=== PATIENT | male | born 1975 | race Caucasian/White ===

== ENCOUNTER 2018-08-27 20:53 | Inpatient (IN) | payer OTHER ==
[~2018-08-27] VITALS: Ht 190.5 cm; Wt 138.3 kg
[2018-08-27] MEDS ORDERED: IV NORMAL SALINE 1,000ML 1,000 ML IV SCH (21:48)
[2018-08-27] MEDS ORDERED: diphenhydrAMINE 50 MG/ML VIAL IV ONE (22:00)
[2018-08-27] MEDS ORDERED: methylPREDNISolone SOD SUCC PF 125 MG/2 ML VIAL. IV ONE (22:15)
[2018-08-27 22:29] LABS: BASO # 0.1 x10^3/uL (0.0-0.2); BASO % 1 % (0-3); EOS # 0.2 x10^3/uL (0.0-0.7); EOS % 2 % (0-3); HEMATOCRIT 39.7 % (39.0-53.0); HEMOGLOBIN 13.4 g/dL (13.0-17.5); LYMPH # 1.6 x10^3/uL (1.0-4.8); LYMPH % 21 % (24-48); MEAN CORPUSCULAR HEMOGLOBIN 32 pg (25-35); MEAN CORPUSCULAR HGB CONC 34 g/dL (31-37); MEAN CORPUSCULAR VOLUME 95 fL (79-100); MONO # 0.8 x10^3/uL (0.0-1.1); MONO % 10 % (0-9); NEUT # 5.2 x10^3uL (1.8-7.7); NEUT % 66 % (31-73); PLATELET COUNT 223 x10^3/uL (140-400); RED BLOOD COUNT 4.19 x10^6/uL (4.30-5.70); RED CELL DISTRIBUTION WIDTH 13.1 % (11.5-14.5); WHITE BLOOD COUNT 7.8 x10^3/uL (4.0-11.0)
[2018-08-27 22:51] LABS: ALBUMIN 3.5 g/dL (3.4-5.0); ALBUMIN/GLOBULIN RATIO 1.1 (1.0-1.7); CALCIUM 8.7 mg/dL (8.5-10.1); CREATININE 1.1 mg/dL (0.7-1.3); GFR 72.4; POTASSIUM 3.7 mmol/L (3.5-5.1); TOTAL BILIRUBIN 0.6 mg/dL (0.2-1.0)
[2018-08-27 22:53] LABS: TOTAL PROTEIN 6.7 g/dL (6.4-8.2)
[2018-08-27] MEDS ORDERED: IV NORMAL SALINE 1,000ML 1,000 ML IV ONE (23:45)
[2018-08-28] MEDS ORDERED: ONDANSETRON PF 4 MG/2 ML VIAL. IV PRN (01:00)
--- NOTE | 2018-08-28 01:02 | PHYS DOC ---
Past History Past Medical History: Asthma, Hypertension Past Surgical History: Other Alcohol Use: None Drug Use: None Adult General Chief Complaint Chief Complaint: SKIN PROBLEM HPI HPI Patient is a 43-year-old male who presents with complaint of sunburn and diffuse rash that he states is painful. Patient states that he has been exposed to a number of different chemicals but is not able to identify them. He states that he has been working outdoors in the heat quite a bit and does admit to sunburn but also complains of muscle aches. He rates the pain as moderate. He does indicate that he has been drinking as much fluid as he could but he admits that he is probably a bit dehydrated. He denies any chest pain or shortness of breath.[] Review of Systems Review of Systems Constitutional: Denies fever or chills [] Respiratory: Denies cough or shortness of breath [] Cardiovascular: No additional information not addressed in HPI [] GI: Denies abdominal pain, nausea, vomiting or diarrhea [] : Denies dysuria or hematuria [] Musculoskeletal: Complains of diffuse muscle aches pain [] Integument: Complains of skin rash and sunburn[] All other systems were reviewed and found to be within normal limits, except as documented in this note. Current Medications Current Medications Current Medications Medications (Trade) Dose Ordered Sig/Demetrice Start Time Stop Time Status Last Admin Dose Admin Diphenhydramine HCl (Benadryl) 50 mg 1X ONCE 08/27/18 22:00 08/27/18 22:03 DC 08/27/18 22:03 50 MG Methylprednisolone Sodium Succinate (SOLU-Medrol 125MG VIAL) 125 mg 1X ONCE 08/27/18 22:15 08/27/18 22:16 DC 08/27/18 22:03 125 MG Sodium Chloride 1,000 ml @ 1,000 mls/hr 1X ONCE 08/27/18 23:45 08/28/18 00:44 DC 08/27/18 23:56 1,000 MLS/HR Allergies Allergies Allergies Coded Allergies Type Severity Reaction Last Updated Verified Penicillins Allergy Unknown 08/27/18 Yes divalproex sodium Allergy Unknown 08/27/18 Yes lithium Allergy Unknown 08/27/18 Yes lurasidone Allergy Unknown 08/27/18 Yes Physical Exam Physical Exam Constitutional: Well developed, well nourished, no acute distress, non-toxic appearance. [] HENT: Normocephalic, atraumatic, bilateral external ears normal, oropharynx moist, no oral exudates, nose normal. [] Eyes: PERRLA, EOMI, conjunctiva normal, no discharge. [] Neck: Normal range of motion, no tenderness, supple, no stridor. [] Cardiovascular:Heart rate regular rhythm, no murmur [] Lungs & Thorax: Bilateral breath sounds clear to auscultation [] Abdomen: Bowel sounds normal, soft, no tenderness. [] Skin: Warm, dry. [] Back: No tenderness, no CVA tenderness. [] Extremities: No tenderness, no cyanosis, no clubbing, ROM intact. [] Neurologic: Alert and oriented X 3, no focal deficits noted. [] Current Patient Data Vital Signs Vital Signs Date Time Temp Pulse Resp B/P (MAP) Pulse Ox O2 Delivery O2 Flow Rate FiO2 08/27/18 21:13 98.1 98 18 98 Room Air Lab Results Laboratory Tests Test 08/27/18 22:10 White Blood Count 7.8 x10^3/uL (4.0-11.0) Red Blood Count 4.19 x10^6/uL (4.30-5.70) L Hemoglobin 13.4 g/dL (13.0-17.5) Hematocrit 39.7 % (39.0-53.0) Mean Corpuscular Volume 95 fL (79-100) Mean Corpuscular Hemoglobin 32 pg (25-35) Mean Corpuscular Hemoglobin Concent 34 g/dL (31-37) Red Cell Distribution Width 13.1 % (11.5-14.5) Platelet Count 223 x10^3/uL (140-400) Neutrophils (%) (Auto) 66 % (31-73) Lymphocytes (%) (Auto) 21 % (24-48) L Monocytes (%) (Auto) 10 % (0-9) H Eosinophils (%) (Auto) 2 % (0-3) Basophils (%) (Auto) 1 % (0-3) Neutrophils # (Auto) 5.2 x10^3uL (1.8-7.7) Lymphocytes # (Auto) 1.6 x10^3/uL (1.0-4.8) Monocytes # (Auto) 0.8 x10^3/uL (0.0-1.1) Eosinophils # (Auto) 0.2 x10^3/uL (0.0-0.7) Basophils # (Auto) 0.1 x10^3/uL (0.0-0.2) Sodium Level 143 mmol/L (136-145) Potassium Level 3.7 mmol/L (3.5-5.1) Chloride Level 107 mmol/L (98-107) Carbon Dioxide Level 27 mmol/L (21-32) Anion Gap 9 (6-14) Blood Urea Nitrogen 19 mg/dL (8-26) Creatinine 1.1 mg/dL (0.7-1.3) Estimated GFR (Cockcroft-Gault) 72.4 BUN/Creatinine Ratio 17 (6-20) Glucose Level 87 mg/dL (70-99) Calcium Level 8.7 mg/dL (8.5-10.1) Total Bilirubin 0.6 mg/dL (0.2-1.0) Aspartate Amino Transferase (AST) 65 U/L (15-37) H Alanine Aminotransferase (ALT) 51 U/L (16-63) Alkaline Phosphatase 68 U/L (46-116) Creatine Kinase 1994 U/L (39-308) H Total Protein 6.7 g/dL (6.4-8.2) Albumin 3.5 g/dL (3.4-5.0) Albumin/Globulin Ratio 1.1 (1.0-1.7) EKG EKG [] Radiology/Procedures Radiology/Procedures [] Course & Med Decision Making Course & Med Decision Making Pertinent Labs and Imaging studies reviewed. (See chart for details) [] Dragon Disclaimer Dragon Disclaimer This electronic medical record was generated, in whole or in part, using a voice recognition dictation system. Departure Departure: Impression: Primary Impression: Rhabdomyolysis Additional Impression: Dehydration Disposition: 09 ADMITTED INPATIENT Admitting Physician: Shashi Hunter Condition: IMPROVED Referrals: PCP,NO (PCP) Problem Qualifiers Primary Impression: Rhabdomyolysis Rhabdomyolysis type: non-traumatic Qualified Codes: M62.82 - Rhabdomyolysis RAFAEL ANN Jr. DO Aug 28, 2018 01:02
[2018-08-28 01:21] LABS: BILIRUBIN,URINE NEG (NEG); CLARITY,URINE CLEAR; COLOR,URINE YELLOW; GLUCOSE,URINE NEG (NEG); NITRITE,URINE NEG (NEG); UROBILINOGEN,URINE 2 mg/dL (0.2 mg/dL)
[2018-08-28 01:22] LABS: BACTERIA,URINE 0 /HPF (0-FEW); RBC,URINE OCC /HPF (0-2); SQUAMOUS EPITHELIAL CELL,UR OCC /LPF; WBC,URINE OCC /HPF (0-4)
[2018-08-28 02:19] VITALS: BP 106/68
[2018-08-28] MEDS: IV NORMAL SALINE 1,000ML 1,000 ML IV SCH ×5 (03:08→17:36)
[2018-08-28] MEDS ORDERED: MONT10TA9 PO (03:24)
[2018-08-28] MEDS ORDERED: FLUT16SP21 NS (03:24)
[2018-08-28] MEDS ORDERED: CETI10TA16 PO (03:24)
[2018-08-28] MEDS ORDERED: ALBU2.5V8 INH (03:24)
[2018-08-28 05:06] VITALS: BP 133/79
[2018-08-28] MEDS ORDERED: ALBUTEROL SULFATE 2.5 MG/3 ML NEBU. INH PRN (07:45)
[2018-08-28] MEDS: MONTELUKAST 10 MG TABLET. PO SCH (09:25)
[2018-08-28] MEDS: FLUTICASONE 50MCG/NASAL SPRAY 16GM BOTTLE. NS SCH (09:25)
[2018-08-28] MEDS: CETIRIZINE HCL 10 MG TABLET PO SCH (09:25)
[2018-08-28] MEDS ORDERED: ACETAMINOPHEN 325 MG TABLET PO PRN (09:30)
[2018-08-28 11:25] VITALS: BP 128/75
--- NOTE | 2018-08-28 14:49 | HP ---
ADMIT DATE: 08/28/2018 HISTORY OF PRESENT ILLNESS: The patient is a 43-year-old male patient who came to the Emergency Room complaining of a sunburn and diffuse rash that he states is painful. The patient states that he has been exposed to a number of different chemicals, but is not able to identify and he states that he has been working outdoors in the heat quite a bit and does admit to sunburn, but also complains of muscle aches. He rates his pain as moderate. He does indicate that he has been drinking as much fluid as he could, but admits that he probably a bit dehydrated. He denied any chest pain or shortness of breath. He apparently has been in [place] for more than 7 years and he has now been in [facility] for almost 2 weeks. He is also complaining of severe pain in his right shoulder. It is constant, burning in nature. He apparently had an x-ray while in [place] that was interpreted as normal. He was investigated in the Emergency Room and has had lab work, which showed that he has mild rhabdomyolysis. His white cell count was normal. His urinalysis was unremarkable. He was admitted for rehydration and pain management. PAST MEDICAL HISTORY: Significant for bronchial asthma and osteoarthritis. PAST SURGICAL HISTORY: Significant for left ankle surgery, left fourth, fifth finger reconstruction surgery. ALLERGIES: He is allergic to PENICILLIN, DIVALPROEX SODIUM, LITHIUM . MEDICATIONS: He is currently on following medications: He is on cetirizine 10 mg once a day, albuterol sulfate 1-2 puffs every 6 hours, Singulair 10 mg once a day, and Flonase 2 sprays to each nostril once a day. FAMILY HISTORY: He does not know his biological father. His mother is still alive at the age of 66 and is known to have diabetes. SOCIAL HISTORY: He is single, has one son. He smokes a pack a day. He does not drink alcohol or use recreational drugs. He is currently in [facility]. He has been in [facility] for more than 7 years and was released only about 2 weeks ago. REVIEW OF SYSTEMS: The patient denied any blurring of vision, cataract, glaucoma, or macular degeneration. Denied any earache, tinnitus, or sensorineural deafness. Denied any nosebleeds, stuffy nose, or postnasal drip. Denied any sore throat, sore tongue, toothache, hoarseness of voice or difficulty swallowing. Denied any nausea, vomiting, diarrhea, or constipation. Denied any hematemesis, melena, or hematochezia. Denied any dysuria, frequency, or hematuria. Denied any chest pain, shortness of breath, orthopnea, paroxysmal nocturnal dyspnea. Denied any cough, phlegm, or hemoptysis. PHYSICAL EXAMINATION: GENERAL: On examining him, he looked well and was clearly in no apparent respiratory distress. No pallor, jaundice, cyanosis, or thyromegaly. No jugular venous distension. No limb edema. VITAL SIGNS: His heart rate was 73, blood pressure 106/68, temperature was 97.7, respiratory rate was 18, and oxygen saturation was 93%. HEAD, EYES, EARS, NOSE, AND THROAT: Showed normocephalic, atraumatic. NECK: Supple. HEART: Showed normal first and second heart sounds with no gallop, rub, or murmur. CHEST: Clear to auscultation. No crepitation or rhonchi. ABDOMEN: Distended, soft, nontender. NEUROLOGIC: He was awake, alert, responding appropriately. All cranial nerves intact. EXTREMITIES: He moves extremities without difficulty. Examination of the skin showed that he has areas of sunburn, both upper and lower extremities clearly involving the exposed part. He has also generalized painful macular rash that is all over his upper and lower extremities and torso. LABORATORY DATA: Showed a white cell count of 7800, hemoglobin 13.4, hematocrit 39, MCV 95, and platelet count of 223,000. His serum sodium was 143, potassium 3.7, chloride 107, his anion gap of 9, BUN 19, creatinine 1.1, estimated GFR was 72 mL per minute. His glucose was 87, calcium was 8.7. Total bilirubin, alkaline phosphatase is normal. AST is slightly elevated. His creatinine kinase was 1994. Total protein was 6.7, albumin was 3.5. His urinalysis showed the urine was yellow, clear with a pH of 6, specific gravity of 1.020. The urine was negative for protein, glucose, trace of ketones, negative for blood, nitrite and leukocyte esterase. There are no rbc's, no wbc's, and no bacteria. IMPRESSION: In summary, this is a 43-year-old male patient who was admitted with mild rhabdomyolysis and dehydration. He has an erythematous painful skin rash, probably because of sun exposure. There is also painful generalized macular rash, the cause of which is not clear to me, most of it is exposed skin. The patient works with [employer] and he is obviously exposed to multiple chemicals. My plan is to continue with IV fluid, continue with pain management. Continue with all his medication. I will arrange for him to have a CT scan of his right shoulder and decide on further management accordingly. PAZ SHAIKH MD DR: EDGAR/amanda JOB#: [id number] / [id number]
[2018-08-28] MEDS ORDERED: HYDROcodone/APAP 5/325MG 1 TAB TABLET PO PRN (15:00)
--- NOTE | 2018-08-28 15:08 | RAD ---
Examination: CT right shoulder without contrast HISTORY: History of right shoulder pain COMPARISON: None available. TECHNIQUE: Axial CT images of the right shoulder performed the contrast. Coronal sagittal reformats are performed Exposure: One or more of the following individualized dose reduction techniques were utilized for this examination: 1. Automated exposure control 2. Adjustment of the mA and/or kV according to patient size 3. Use of iterative reconstruction technique FINDINGS: The right humerus head is within the glenoid. There is no acute fracture or dislocation identified. Mild degenerative changes identified in the right acromioclavicular joint. There is mild subcutaneous stranding identified in the upper back and shoulder region. The visualized right lung grossly appears unremarkable, IMPRESSION: 1. No acute osseous findings. 2. Mild degenerative changes acromioclavicular joint. 3. Mild subcutaneous stranding identified in the right shoulder and right upper back region could be edema or cellulitis. Electronically signed by: Kenn Vaz MD (08/28/2018 3:05 PM) [id number]
[2018-08-28] MEDS: HYDROcodone/APAP 5/325MG 1 TAB TABLET PO PRN ×2 (15:37→17:30)
[2018-08-28 16:00] VITALS: BP 117/68
[2018-08-28] MEDS: NICOTINE 21MG PATCH. TD SCH (18:25)
[2018-08-28 19:29] VITALS: BP 110/70
[2018-08-28 23:13] VITALS: BP 126/79
[2018-08-29 05:36] VITALS: BP 108/69
[2018-08-29] MEDS ORDERED: IV NORMAL SALINE 1,000ML 1,000 ML IV SCH (06:00)
[2018-08-29 06:29] LABS: HEMATOCRIT 36.5 % (39.0-53.0); HEMOGLOBIN 12.2 g/dL (13.0-17.5); RED BLOOD COUNT 3.81 x10^6/uL (4.30-5.70); RED CELL DISTRIBUTION WIDTH 13.1 % (11.5-14.5)
[2018-08-29 06:44] LABS: ALBUMIN 2.8 g/dL (3.4-5.0); ALBUMIN/GLOBULIN RATIO 0.9 (1.0-1.7); C REACTIVE PROTEIN 13.8 mg/L (0-3.3); CALCIUM 7.9 mg/dL (8.5-10.1); CREATININE 0.9 mg/dL (0.7-1.3); GFR 91.3; POTASSIUM 4.2 mmol/L (3.5-5.1); TOTAL BILIRUBIN 0.4 mg/dL (0.2-1.0); TOTAL PROTEIN 5.9 g/dL (6.4-8.2)
[2018-08-29] MEDS: MONTELUKAST 10 MG TABLET. PO SCH (08:44)
[2018-08-29] MEDS: FLUTICASONE 50MCG/NASAL SPRAY 16GM BOTTLE. NS SCH (08:44)
[2018-08-29] MEDS: CETIRIZINE HCL 10 MG TABLET PO SCH (08:44)
[2018-08-29] MEDS: NICOTINE 21MG PATCH. TD SCH (08:47)
[2018-08-29 11:37] VITALS: BP 138/77
--- NOTE | 2018-08-29 14:47 | DS ---
DATE OF DISCHARGE: 08/29/2018 FINAL DISCHARGE DIAGNOSES: 1. Dehydration, rehydrated. 2. Rhabdomyolysis, mild, resolved. 3. Renal failure, ruled out. 4. Generalized macular rash, resolving. 5. History of asthma. 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 Weather has been hot. He was admitted with a diffuse sunburn rash over his torso and legs. He was also weak and tired and he was dehydrated. PHYSICAL EXAMINATION: Please see the dictated note. PERTINENT LABORATORY AND X-RAY STUDIES: On admission, his hemoglobin was 13.4 mg/dL. The electrolytes showed creatinine 1.1 mg/dL, BUN 19. Urine specific gravity is 1.020. His total creatine kinase was 1994. Follow up CK the next day was down to 390. Electrolytes and creatinine were within normal range. COURSE IN THE HOSPITAL: The patient was admitted for IV hydration. He was given symptomatic treatment for his rash, which dissipated and he had no further symptoms. Creatinine was normal. In addition, his CPK resolved and fell to a reasonable level. Clinically, he did well. Blood pressure, vital signs were stable. He was eating well. He wanted to be discharged and go home. I recommended oral Gatorade, which he will follow up. There is no history of recreational drug use. On the next hospital day, the patient was in stable condition. He was discharged home with explicit instructions and followup care. SAVANNAH TURK MD DR: ADELIA/amanda JOB#: [id number] / [id number] PAZ Medeiros MD
== END 2018-08-29 13:00 | disposition home or self-care (01) | DRG 558 ==
LOC: ER 20:53 → 1 SOUTH 08-28 01:02
PROVIDERS: ADMIT Internal Medicine; ATTEND Internal Medicine
DX: M62.82 Rhabdomyolysis (principal); E86.0 Dehydration; F17.210 Nicotine dependence, cigarettes, uncomplicated; I10 Essential (primary) hypertension; J45.909 Unspecified asthma, uncomplicated; Z83.3 Family history of diabetes mellitus; M19.90 Unspecified osteoarthritis, unspecified site; Z88.0 Allergy status to penicillin; Z88.8 Allergy status to other drugs, medicaments and biological substances
CPT/HCPCS: 36415; 73200; 80053; 81001; 82550; 85025; 85027; 85651; 86140; 87641; 96361; 96374; 96375; J1200; J2930; 99285-25; J7030

== ENCOUNTER 2018-10-06 23:55 | Emergency (ER) | payer OTHER ==
[~2018-10-06] VITALS: Ht 190.5 cm; Wt 124.7 kg
[~2018-10-06 23:55] MED LIST: ALBU2.5V8 INH; CETI10TA16 PO; FLUT16SP21 NS; MONT10TA80 PO
--- NOTE | 2018-10-07 00:53 | PHYS DOC ---
Past History Past Medical History: Asthma, Hypertension Past Surgical History: Other Smoking: Cigarettes Additional Smoking Information: One half to one pack per day Alcohol Use: None Drug Use: None Adult General Chief Complaint Chief Complaint: MUSCLE SPASM/CRAMP HPI HPI Patient is a 43-year-old male presents complaining of diffuse muscle spasms. Patient was weed eating outside in the heat today long walk. Drank multiple gallons of water as well as Gatorade. Has only urinated 2 times today. No nausea or vomiting. No syncope. No chest pain. Nothing makes the symptoms better or worse. Symptoms are moderate in intensity.[] Review of Systems Review of Systems Constitutional: Denies fever or chills [] Eyes: Denies change in visual acuity, redness, or eye pain [] HENT: Denies nasal congestion or sore throat [] Respiratory: Denies cough or shortness of breath [] Cardiovascular: No chest pain or palpitations[] GI: Denies abdominal pain, nausea, vomiting, bloody stools or diarrhea [] : Denies dysuria or hematuria [] Musculoskeletal: Denies back pain, see history of present illness[] Integument: Denies rash or skin lesions [] Neurologic: Denies headache, focal weakness or sensory changes [] Endocrine: Denies polyuria or polydipsia [] All other systems were reviewed and found to be within normal limits, except as documented in this note. Current Medications Current Medications Current Medications Medications (Trade) Dose Ordered Sig/Demetrice Start Time Stop Time Status Last Admin Dose Admin Sodium Chloride 1,000 ml @ 1,000 mls/hr 1X ONCE 10/07/18 01:00 10/07/18 01:59 UNV Allergies Allergies Allergies Coded Allergies Type Severity Reaction Last Updated Verified Penicillins Allergy Intermediate 08/28/18 Yes divalproex sodium Allergy Intermediate 08/28/18 Yes lithium Allergy Intermediate 08/28/18 Yes lurasidone Allergy Intermediate 08/28/18 Yes Physical Exam Physical Exam Constitutional: Well developed, well nourished, no acute distress, non-toxic appearance. [] HENT: Normocephalic, atraumatic, bilateral external ears normal, oropharynx moist, no oral exudates, nose normal. [] Eyes: PERRLA, EOMI, conjunctiva normal, no discharge. [] Neck: Normal range of motion, no tenderness, supple, no stridor. [] Cardiovascular:Heart rate regular rhythm, no murmur [] Lungs & Thorax: Bilateral breath sounds clear to auscultation [] Abdomen: Bowel sounds normal, soft, no tenderness, no masses, no pulsatile masses. [] Skin: Warm, dry, no erythema, no rash. [] Back: No tenderness, no CVA tenderness. [] Extremities: No tenderness, no cyanosis, no clubbing, ROM intact, no edema. [] Neurologic: Alert and oriented X 3, normal motor function, normal sensory f unction, no focal deficits noted. [] Psychologic: Affect normal, judgement normal, mood normal. [] EKG EKG [] Radiology/Procedures Radiology/Procedures [] Course & Med Decision Making Course & Med Decision Making Pertinent Labs and Imaging studies reviewed. (See chart for details) ED course: Patient arrived, was placed in bed, and tolerated exam well. IV access was established, he was given IV fluids. His vitals remained stable during his emergency department stay. After the return of laboratory testing, this was discussed with the patient voiced understanding. All questions were answered. He was discharged in improved condition. Medical decision making: This appears to be heat cramps, no evidence of significant electrolyte abnormality. No evidence of renal failure. Patient is oral intake tolerant.[] Dragon Disclaimer Dragon Disclaimer This electronic medical record was generated, in whole or in part, using a voice recognition dictation system. 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 Follow-up with your primary care team within 2 days. Eat your meals. Return to the ER if unable to tolerate liquids, or any other concerns. Problem Qualifiers Primary Impression: Heat cramps Encounter type: initial encounter Qualified Codes: T67.2XXA - Heat cramp, initial encounter KANDIS ESCAMILLA Oct 07, 2018 00:53
[2018-10-07] MEDS ORDERED: IV NORMAL SALINE 1,000ML 1,000 ML IV ONE (01:00)
[2018-10-07 01:09] LABS: BASO # 0.1 x10^3/uL (0.0-0.2); BASO % 1 % (0-3); EOS # 0.1 x10^3/uL (0.0-0.7); EOS % 1 % (0-3); HEMATOCRIT 43.8 % (39.0-53.0); HEMOGLOBIN 14.7 g/dL (13.0-17.5); LYMPH # 1.8 x10^3/uL (1.0-4.8); LYMPH % 17 % (24-48); MEAN CORPUSCULAR HEMOGLOBIN 33 pg (25-35); MEAN CORPUSCULAR HGB CONC 34 g/dL (31-37); MEAN CORPUSCULAR VOLUME 97 fL (79-100); MONO # 0.8 x10^3/uL (0.0-1.1); MONO % 7 % (0-9); NEUT # 7.7 x10^3uL (1.8-7.7); NEUT % 73 % (31-73); PLATELET COUNT 241 x10^3/uL (140-400); RED BLOOD COUNT 4.53 x10^6/uL (4.30-5.70); RED CELL DISTRIBUTION WIDTH 13.5 % (11.5-14.5); WHITE BLOOD COUNT 10.5 x10^3/uL (4.0-11.0)
[2018-10-07 01:24] LABS: ALBUMIN 3.7 g/dL (3.4-5.0); ALBUMIN/GLOBULIN RATIO 1.1 (1.0-1.7); CALCIUM 8.8 mg/dL (8.5-10.1); CREATININE 1.2 mg/dL (0.7-1.3); GFR 65.5; MAGNESIUM 2.4 mg/dL (1.8-2.4); POTASSIUM 4.3 mmol/L (3.5-5.1); TOTAL BILIRUBIN 0.7 mg/dL (0.2-1.0)
[2018-10-07 02:35] VITALS: BP 144/79
== END 2018-10-07 02:45 | disposition home or self-care (01) ==
LOC: ER 23:55
DX: T67.2XXA Heat cramp, initial encounter (principal); J45.909 Unspecified asthma, uncomplicated; I10 Essential (primary) hypertension; F17.210 Nicotine dependence, cigarettes, uncomplicated; Z88.0 Allergy status to penicillin; Z88.8 Allergy status to other drugs, medicaments and biological substances; X58.XXXA Exposure to other specified factors, initial encounter; Y93.01 Activity, walking, marching and hiking; Y92.89 Other specified places as the place of occurrence of the external cause; Y99.8 Other external cause status
CPT/HCPCS: 36415; 80053; 83735; 85025; 99284-25; J7030

== ENCOUNTER 2018-10-14 07:08 | Emergency (ER) | payer OTHER ==
[~2018-10-14] VITALS: Ht 190.5 cm; Wt 72.6 kg
[2018-10-14 07:32] VITALS: BP 158/98
[2018-10-14] MEDS ORDERED: DIPHTH,PERTUSS(ACELL),TET TOX 0.5 ML DISP.SYRIN. VAX IM ONE (07:45)
[2018-10-14] MEDS ORDERED: MELO7.5T29 PO (07:48)
[2018-10-14] MEDS ORDERED: SULF1TAB24 PO (07:48)
--- NOTE | 2018-10-14 07:49 | PHYS DOC ---
Past History Past Medical History: Asthma, Hypertension Past Surgical History: Other Smoking: Cigarettes Alcohol Use: None Drug Use: None Adult General Chief Complaint Chief Complaint: SKIN PROBLEM HPI HPI Patient is a 43-year-old male presents with multiple wounds that started 3 days ago. 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 No difficulty breathing. His most severe wound is on his right armpit. He reports taking a forced inch splinter out of the area. Denies any difficulty breathing. Reports increasing redness and discomfort in the area. He is uncertain as to when he received his last tetanus vaccine. Nothing makes the symptoms better or worse. Denies any fever. Symptoms are moderate in intensity.[] Review of Systems Review of Systems Constitutional: Denies fever or chills [] Eyes: Denies change in visual acuity, redness, or eye pain [] HENT: Denies nasal congestion or sore throat [] Respiratory: Denies cough or shortness of breath [] Cardiovascular: No chest pain or palpitations[] GI: Denies abdominal pain, nausea, vomiting, bloody stools or diarrhea [] : Denies dysuria or hematuria [] Musculoskeletal: Denies back pain or joint pain [] Integument: See history of present illness[] Neurologic: Denies headache, focal weakness or sensory changes [] Endocrine: Denies polyuria or polydipsia [] All other systems were reviewed and found to be within normal limits, except as documented in this note. Allergies Allergies Allergies Coded Allergies Type Severity Reaction Last Updated Verified Penicillins Allergy Intermediate 08/28/18 Yes divalproex sodium Allergy Intermediate 08/28/18 Yes lithium Allergy Intermediate 08/28/18 Yes lurasidone Allergy Intermediate 08/28/18 Yes Physical Exam Physical Exam Constitutional: Well developed, well nourished, no acute distress, non-toxic appearance. [] HENT: Normocephalic, atraumatic, bilateral external ears normal, oropharynx moist, no oral exudates, nose normal. [] Eyes: PERRLA, EOMI, conjunctiva normal, no discharge. [] Neck: Normal range of motion, no tenderness, supple, no stridor. [] Cardiovascular:Heart rate regular rhythm, no murmur [] Lungs & Thorax: Bilateral breath sounds clear to auscultation [] Abdomen: Bowel sounds normal, soft, no tenderness, no masses, no pulsatile masses. [] Skin: Warm, dry, multiple abrasions that are erythematous on his bilateral upper extremities. Largest is in his right axilla approximately 3 cm transverse by a 1.5 cm cephalad caudad. There is no suturable wound identified. There is moderate local erythema. No drainage. No lymphadenopathy appreciated. [] Back: No tenderness, no CVA tenderness. [] Extremities: No tenderness, no cyanosis, no clubbing, ROM intact, no edema. [] Neurologic: Alert and oriented X 3, normal motor function, normal sensory function, no focal deficits noted. [] Psychologic: Affect normal, judgement normal, mood normal. [] EKG EKG [] Radiology/Procedures Radiology/Procedures Bedside [id number] ultrasonography was performed of the right axilla to identify any foreign body. No increased shadowing consistent with a foreign body was appreciated.[] Course & Med Decision Making Course & Med Decision Making Pertinent Labs and Imaging studies reviewed. (See chart for details) Medical decision making and ED course: Patient arrived, was placed in bed, and tolerated exam well. [id number] ultrasound was performed to identify retained foreign body which none was identified. Given the length of time since the wound and the appearance of these wounds, prophylactic antibiotic therapy is being started. His tetanus status is being updated. There is no evidence of systemic toxicity. No evidence of a retained foreign body. Discussed findings and plan with patient who voiced understanding. All questions were answered. He was discharged in improved condition.[] Dragon Disclaimer Dragon Disclaimer This electronic medical record was generated, in whole or in part, using a voice recognition dictation system. Departure Departure: Impression: Primary Impression: Puncture wound Disposition: 01 HOME, SELF-CARE Condition: IMPROVED Referrals: FABIOLA CLEMENTE NP-Laura (PCP) Follow-up in 2 days Patient Instructions: VIS, Tetanus, Diphtheria (Td); Tetanus, Diphtheria, Pertussis (Tdap) - CDC, Wood Splinters, Wound Infection Additional Instructions: Keep the area clean and dry. Follow-up with your regular doctor in 2 days for a wound check. Return to the ER if worsening redness, purulent drainage, fever of more than 101, or any other concerns. Scripts Meloxicam (MELOXICAM) 7.5 Mg Tablet 7.5 MG PO DAILY for PAIN, #20 TAB Prov: KANDIS ESCAMILLA DO 10/14/18 Sulfamethoxazole/Trimethoprim (BACTRIM DS TABLET) 1 Each Tablet 1 TAB PO BID for skin wounds, #20 TAB Prov: KANDIS ESCAMILLA DO 10/14/18 KANDIS ESCAMILLA DO Oct 14, 2018 07:49
== END 2018-10-14 07:58 | disposition home or self-care (01) ==
LOC: ER 07:08
DX: S41.131A Puncture wound without foreign body of right upper arm, initial encounter (principal); J45.909 Unspecified asthma, uncomplicated; I10 Essential (primary) hypertension; F17.210 Nicotine dependence, cigarettes, uncomplicated; Z88.0 Allergy status to penicillin; Z88.8 Allergy status to other drugs, medicaments and biological substances; W45.8XXA Other foreign body or object entering through skin, initial encounter; Y93.89 Activity, other specified; Y92.89 Other specified places as the place of occurrence of the external cause; Y99.0 Civilian activity done for income or pay
CPT/HCPCS: 90471; 90715; 99283-25; 99284-25

== ENCOUNTER 2018-10-15 19:31 | Emergency (ER) | payer OTHER ==
[~2018-10-15] VITALS: Ht 190.5 cm; Wt 72.6 kg
[~2018-10-15 19:31] MED LIST changes: +MELO7.5T29 PO; +SULF1TAB24 PO
[2018-10-15 19:52] VITALS: BP 150/83
[2018-10-15] MEDS ORDERED: MUPIROCIN 2% TOPICAL OINTMENT 22GM TUBE. TP ONE (21:00)
--- NOTE | 2018-10-15 21:04 | PHYS DOC ---
Past History Past Medical History: No Pertinent History Past Surgical History: No Surgical History Smoking: Cigarettes Alcohol Use: None Drug Use: None Adult General Chief Complaint Chief Complaint: SKIN RASH/ABSCESS HPI HPI Patient is a [age] year old [sex] who presents with [] Review of Systems Review of Systems Constitutional: Denies fever or chills [] Eyes: Denies change in visual acuity, redness, or eye pain [] HENT: Denies nasal congestion or sore throat [] Respiratory: Denies cough or shortness of breath [] Cardiovascular: No additional information not addressed in HPI [] GI: Denies abdominal pain, nausea, vomiting, bloody stools or diarrhea [] : Denies dysuria or hematuria [] Musculoskeletal: Denies back pain or joint pain [] Integument: Denies rash or skin lesions [] Neurologic: Denies headache, focal weakness or sensory changes [] Endocrine: Denies polyuria or polydipsia [] All other systems were reviewed and found to be within normal limits, except as documented in this note. Current Medications Current Medications Current Medications Medications (Trade) Dose Ordered Sig/Demetrice Start Time Stop Time Status Last Admin Dose Admin Mupirocin (Bactroban) 1 sudeep 1X ONCE 10/15/18 21:00 10/15/18 21:01 Allergies Allergies Allergies Coded Allergies Type Severity Reaction Last Updated Verified Penicillins Allergy Intermediate 08/28/18 Yes divalproex sodium Allergy Intermediate 08/28/18 Yes lithium Allergy Intermediate 08/28/18 Yes lurasidone Allergy Intermediate 08/28/18 Yes Physical Exam Physical Exam Constitutional: Well developed, well nourished, no acute distress, non-toxic appearance. [] HENT: Normocephalic, atraumatic, bilateral external ears normal, oropharynx moist, no oral exudates, nose normal. [] Eyes: PERRLA, EOMI, conjunctiva normal, no discharge. [] Neck: Normal range of motion, no tenderness, supple, no stridor. [] Cardiovascular:Heart rate regular rhythm, no murmur [] Lungs & Thorax: Bilateral breath sounds clear to auscultation [] Abdomen: Bowel sounds normal, soft, no tenderness, no masses, no pulsatile masses. [] Skin: Warm, dry, no erythema, no rash. [] Back: No tenderness, no CVA tenderness. [] Extremities: No tenderness, no cyanosis, no clubbing, ROM intact, no edema. [] Neurologic: Alert and oriented X 3, normal motor function, normal sensory fun ction, no focal deficits noted. [] Psychologic: Affect normal, judgement normal, mood normal. [] Current Patient Data Vital Signs Vital Signs Date Time Temp Pulse Resp B/P (MAP) Pulse Ox O2 Delivery O2 Flow Rate FiO2 10/15/18 19:52 98.1 94 16 97 Room Air EKG EKG [] Radiology/Procedures Radiology/Procedures [] Course & Med Decision Making Course & Med Decision Making Pertinent Labs and Imaging studies reviewed. (See chart for details) [] Dragon Disclaimer Dragon Disclaimer This electronic medical record was generated, in whole or in part, using a voice recognition dictation system. Departure Departure: Impression: Primary Impression: Paresthesia of hand Additional Impression: Skin lesion, superficial Disposition: HOME, SELF-CARE Condition: STABLE Referrals: FABIOLA CLEMENTE VESSEL MANAGER-C (PCP) Patient Instructions: Paresthesia, [id number], Wound Care, [id number] Additional Instructions: Please take previously prescribed medications as prescribed. Use topical antibiotic ointment as prescribed. Problem Qualifiers Primary Impression: Paresthesia of hand Laterality: right Qualified Codes: R20.2 - Paresthesia of skin RIYA LOYOLA DO Oct 15, 2018 21:04
== END 2018-10-15 21:10 | disposition home or self-care (01) ==
LOC: ER 19:31
DX: L98.8 Other specified disorders of the skin and subcutaneous tissue (principal); R20.2 Paresthesia of skin; F17.210 Nicotine dependence, cigarettes, uncomplicated; Z88.0 Allergy status to penicillin; Z88.8 Allergy status to other drugs, medicaments and biological substances
CPT/HCPCS: 99282

== ENCOUNTER 2018-10-17 11:38 | Emergency (ER) | payer OTHER ==
[~2018-10-17] VITALS: Ht 190.5 cm; Wt 72.6 kg
[2018-10-17 11:49] VITALS: BP 121/76
[2018-10-17] MEDS ORDERED: CETI10TA16 PO (13:23)
[2018-10-17] MEDS ORDERED: CEPH-264 PO (13:23)
[2018-10-17] MEDS ORDERED: FAMO-63 PO (13:23)
--- NOTE | 2018-10-17 13:24 | PHYS DOC ---
Past History Past Medical History: No Pertinent History Past Surgical History: No Surgical History Smoking: Cigarettes Alcohol Use: None Drug Use: None Adult General Chief Complaint Chief Complaint: SKIN PROBLEM HPI HPI 43-year-old male presents with multiple insect bites and concern for cellulitis. The patient was recently seen and placed on Bactrim, but the erythema around despite cystoscopy getting better. Patient has lots of insect bites. 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 He tries to wear insect repellent, but is sweating a lot. He denies fever or chills. He realizes that he scratches at it is bites and this makes them worse. He denies any drug use. 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 Review of Systems Review of Systems Constitutional: Denies fever or chills [] Eyes: Denies change in visual acuity, redness, or eye pain [] HENT: Denies nasal congestion or sore throat [] Respiratory: Denies cough or shortness of breath [] Cardiovascular: No additional information not addressed in HPI [] GI: Denies abdominal pain, nausea, vomiting, bloody stools or diarrhea [] : Denies dysuria or hematuria [] Musculoskeletal: Denies back pain or joint pain [] Integument: Multiple insect bites all over his body. [] Neurologic: Denies headache, focal weakness or sensory changes [] Endocrine: Denies polyuria or polydipsia [] All other systems were reviewed and found to be within normal limits, except as documented in this note. Allergies Allergies Allergies Coded Allergies Type Severity Reaction Last Updated Verified Penicillins Allergy Intermediate 08/28/18 Yes divalproex sodium Allergy Intermediate 08/28/18 Yes lithium Allergy Intermediate 08/28/18 Yes lurasidone Allergy Intermediate 08/28/18 Yes Physical Exam Physical Exam Constitutional: Well developed, well nourished, no acute distress, non-toxic appearance. [] HENT: Normocephalic, atraumatic, bilateral external ears normal, oropharynx moist, no oral exudates, nose normal. [] Eyes: PERRLA, EOMI, conjunctiva normal, no discharge. [] Neck: Normal range of motion, no tenderness, supple, no stridor. [] Cardiovascular:Heart rate regular rhythm, no murmur [] Lungs & Thorax: Bilateral breath sounds clear to auscultation [] Abdomen: Bowel sounds normal, soft, no tenderness, no masses, no pulsatile masses. [] Skin: Multiple insect bites.Several of these areas on his lateral hands with evidence of scratching and scabbing. There is surrounding cellulitis on his bilateral hands and lower arms.. [] Back: No tenderness, no CVA tenderness. [] Extremities: No tenderness, no cyanosis, no clubbing, ROM intact, no edema. [] Neurologic: Alert and oriented X 3, normal motor function, normal sensory function, no focal deficits noted. [] Psychologic: Affect normal, judgement normal, mood normal. [] Current Patient Data Vital Signs Vital Signs Date Time Temp Pulse Resp B/P (MAP) Pulse Ox O2 Delivery O2 Flow Rate FiO2 10/17/18 11:49 97.7 83 20 96 Room Air EKG EKG [] Radiology/Procedures Radiology/Procedures [] Course & Med Decision Making Course & Med Decision Making Pertinent Labs and Imaging studies reviewed. (See chart for details) I believe the patient has cellulitis to scratching these insect bites and then getting infected. He is only having the Bactrim for a couple of days, but I will add Keflex for better strep coverage. I will also advise him to take cetirizine and Pepcid for the pruritus. He is stable for discharge at this time. [] Dragon Disclaimer Dragon Disclaimer This electronic medical record was generated, in whole or in part, using a voice recognition dictation system. Departure Departure: Impression: Primary Impression: Cellulitis Disposition: HOME, SELF-CARE Condition: STABLE Referrals: FABIOLA CLEMENTE WORKERS COMPENSATION PARALEGAL-C (PCP) Patient Instructions: Cellulitis, Pkco-rr-[id number], Insect Bite, Keuv-lv-Gbez Scripts Cetirizine Hcl (CETIRIZINE HCL) 10 Mg Tablet 1 TAB PO DAILY for itching, #30 TAB 0 Refills Prov: DANA MICHELE DO 10/17/18 Famotidine (PEPCID) 20 Mg Tablet 1 TAB PO BID for itching, #60 TAB 0 Refills Prov: DANA MICHELE DO 10/17/18 Cephalexin (KEFLEX) 500 Mg Capsule 1 CAP PO TID for cellulitis, #21 CAP Prov: DANA MICHELE DO 10/17/18 DANA MICHELE DO Oct 17, 2018 13:24
== END 2018-10-17 13:30 | disposition home or self-care (01) ==
LOC: ER 11:38
DX: S60.562A Insect bite (nonvenomous) of left hand, initial encounter (principal); S60.561A Insect bite (nonvenomous) of right hand, initial encounter; L03.114 Cellulitis of left upper limb; L03.113 Cellulitis of right upper limb; F17.210 Nicotine dependence, cigarettes, uncomplicated; Z88.0 Allergy status to penicillin; Z88.8 Allergy status to other drugs, medicaments and biological substances; W57.XXXA Bitten or stung by nonvenomous insect and other nonvenomous arthropods, initial encounter; Y93.89 Activity, other specified; Y92.89 Other specified places as the place of occurrence of the external cause; Y99.8 Other external cause status
CPT/HCPCS: 99283

== ENCOUNTER → 2018-11-06 | Outpatient (CLI) | payer OTHER ==
[2018-10-17 11:49] VITALS: BP 121/76
[~2018-11-06] MED LIST changes: +CEPH-264 PO; +FAMO-63 PO
--- NOTE | 2018-11-07 01:19 | RAD ---
Two-view left foot dated 11/06/2018. No comparison available. CLINICAL INDICATION: Pain after injury. FINDINGS: 2 views left foot show normal bony alignment. No displaced fracture. No acute osseous or articular abnormality. IMPRESSION: No acute findings. Electronically signed by: John Martini MD (11/07/2018 1:16 AM) [facility]
== END | disposition home or self-care (01) ==
LOC: PMG 17:11
PROVIDERS: ATTEND Registered Nurse
DX: M79.672 Pain in left foot (principal)
CPT/HCPCS: 73620

== ENCOUNTER 2019-03-23 23:20 | Emergency (ER) | payer OTHER ==
[~2019-03-23] VITALS: Ht 190.5 cm; Wt 135.1 kg
--- NOTE | 2019-03-23 23:29 | PHYS DOC ---
Past History Past Medical History: No Pertinent History Past Medical History Hx. of Cellulitis Past Surgical History: No Surgical History Smoking: Cigarettes Alcohol Use: None Drug Use: Amphetamine, Marijuana, Opiates, Other Adult General Chief Complaint Chief Complaint: ".. My hands are swollen.. I got fevers.. chills, my asthma is kicking up... ." HPI HPI Patient is a 43 year old male inmate from [facility] who presents with above hx and multiple complaints. Pt. has obvious cellulitis of sores of both hands. IV injection sites Lt. and Rt. anti cubital areas. Pt. has hx prior episodes of cellulitis. Patient does admit to using IV meth. Patient denies any travel. Patient denies any specific ill contacts. No specific history of immunosuppression. Has history of cellulitis requiring Rx at least 2 previous course of antibiotics and admission. . Patient only follows with Dr. Clemente. Review of Systems Review of Systems Constitutional: Complaints of fever or chills [] Eyes: Denies change in visual acuity, redness, or eye pain [] HENT: Denies nasal congestion or sore throat [] Respiratory: Complaints of cough and wheezing Cardiovascular: No additional information not addressed in HPI [] GI: Denies abdominal pain, nausea, vomiting, bloody stools or diarrhea [] : Denies dysuria or hematuria [] Musculoskeletal: Denies back pain or joint pain [] Integument: Denies rash or skin lesions . Patient []complaints of cellulitis Neurologic: Denies headache, focal weakness or sensory changes [] Endocrine: Denies polyuria or polydipsia [] All other systems were reviewed and found to be within normal limits, except as documented in this note. Family History Family History Noncontributory Current Medications Current Medications See nursing for home meds Allergies Allergies Allergies Coded Allergies Type Severity Reaction Last Updated Verified Penicillins Allergy Intermediate 08/28/18 Yes divalproex sodium Allergy Intermediate 08/28/18 Yes lithium Allergy Intermediate 08/28/18 Yes lurasidone Allergy Intermediate 08/28/18 Yes Physical Exam Physical Exam Constitutional: Moderate acute distress, non-toxic appearance. [] HENT: Normocephalic, atraumatic, bilateral external ears normal, oropharynx moist, no oral exudates, nose normal. Poor dentition Eyes: PERRLA, EOMI, conjunctiva normal, no discharge. [] Neck: Normal range of motion, no tenderness, supple, no stridor. [] Cardiovascular:Heart rate regular rhythm, no murmur [] Lungs & Thorax: Bilateral breath sounds equal apex with scattered wheezes on auscultation [] Abdomen: Bowel sounds normal, soft, no tenderness, no masses, no pulsatile masses. [] Skin: Warm, dry, no erythema, no rash. [] Mild cellulitis both hands . Patient has injection sites antecubital areas Back: No tenderness, no CVA tenderness. [] Extremities: No tenderness, no cyanosis, no clubbing, ROM intact, no edema. [] Neurologic: Alert and oriented X 3, normal motor function, normal sensory function, no focal deficits noted. [] Psychologic: Affect anxious, judgement normal, mood normal. [] EKG EKG My interpretation EKG shows sinus rhythm at 74 bpm. No findings acute STEMI with contralateral changes.[] Radiology/Procedures Radiology/Procedures [][place] [id number] IMAGING REPORT Signed PATIENT: LCAY DUMONT ACCOUNT: [id number] : 1975 LOCATION: ER AGE: 43 SEX: M EXAM STATUS: REG ER ORD. PHYSICIAN: URVASHI GOMEZ MD REASON: dyspnea, CONGESTION PROCEDURE: CHEST PA & LATERAL Study: CHEST PA LATERAL Indication: Dyspnea and congestion. Comparison: None. Findings: No pneumothorax or pleural effusion. No confluent infiltrate. Unremarkable cardiomediastinal silhouette and lance. Impression: No acute radiographic abnormality of the chest. Electronically signed by: DESIRAE SALAZAR MD (03/24/2019 1:04 AM) [facility] DICTATED AND SIGNED BY: DESIRAE SALAZAR MD DATE: 03/24/19 0104 CC: URVASHI GOMEZ MD; FABIOLA CLEMENTE CAB STATION ATTENDANTApolinar ~ Course & Med Decision Making Course & Med Decision Making Pertinent Labs and Imaging studies reviewed. (See chart for details) Stop illicit drugs. Push fluids. Take Bactrim DS twice a day. Followup with primary. Polysporin to sores 4 x day until healed. Must follow-up Impression: 1. Cellulitis 2. Hx. Meth IV use 3. Reactive Airway- Asthma- Bronchitis [] Dragon Disclaimer Dragon Disclaimer This electronic medical record was generated, in whole or in part, using a voice recognition dictation system. Departure Departure: Disposition: HOME/RESIDENCE PRIOR TO ADM Condition: STABLE Referrals: FABIOLA CLEMENTE CAB STATION ATTENDANT-C (PCP) Scripts Sulfamethoxazole/Trimethoprim (BACTRIM DS TABLET) 1 Each Tablet 1 TAB PO BID for cellulitis for 10 Days, #20 TAB 0 Refills Prov: URVASHI GOMEZ MD 03/24/19 URVASHI GOMEZ MD Mar 23, 2019 23:29
[2019-03-23] MEDS ORDERED: predniSONE 20 MG TABLET PO ONE (23:55)
[2019-03-23] MEDS ORDERED: ALBUTEROL SULFATE 8GM INHALER. INH ONE (23:55)
[2019-03-24] MEDS ORDERED: VANCOMYCIN 1 GM in IV NORMAL SALINE 250ML 250 ML IV ONE (00:15)
[2019-03-24] MEDS ORDERED: ASPIRIN 81 MG TAB.CHEW PO ONE (00:15)
[2019-03-24] MEDS ORDERED: DIPHTH,PERTUSS(ACELL),TET TOX 0.5 ML DISP.SYRIN. VAX IM ONE (00:15)
[2019-03-24] MEDS ORDERED: ENOXAPARIN ** NOTE DOSE ** SYRINGE SQ ONE (00:15)
[2019-03-24] MEDS ORDERED: IV RINGERS SOLUTION,LACTATED 1,000 ML IV SCH (00:15)
[2019-03-24] MEDS ORDERED: IPRATRPIUM/ALBUTEROL 0.5/2.5MG 3 ML NEBU. NEB ONE (00:15)
--- NOTE | 2019-03-24 00:18 | EKG ---
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
[2019-03-24 00:55] LABS: BASO % 1 % (0-3); EOS # 0.1 x10^3/uL (0.0-0.7); EOS % 2 % (0-3); HEMATOCRIT 37.6 % (39.0-53.0); HEMOGLOBIN 13.2 g/dL (13.0-17.5); LYMPH # 0.9 x10^3/uL (1.0-4.8); LYMPH % 17 % (24-48); MEAN CORPUSCULAR HEMOGLOBIN 33 pg (25-35); MEAN CORPUSCULAR HGB CONC 35 g/dL (31-37); MEAN CORPUSCULAR VOLUME 95 fL (79-100); MONO # 0.5 x10^3/uL (0.0-1.1); MONO % 10 % (0-9); NEUT # 3.6 x10^3uL (1.8-7.7); NEUT % 71 % (31-73); PLATELET COUNT 202 x10^3/uL (140-400); RED BLOOD COUNT 3.96 x10^6/uL (4.30-5.70); RED CELL DISTRIBUTION WIDTH 13.6 % (11.5-14.5); WHITE BLOOD COUNT 5.1 x10^3/uL (4.0-11.0)
[2019-03-24 01:03] LABS: CALCIUM 8.2 mg/dL (8.5-10.1); CREATININE 0.9 mg/dL (0.7-1.3); GFR 91.3; POTASSIUM 3.9 mmol/L (3.5-5.1)
--- NOTE | 2019-03-24 01:06 | RAD ---
Study: CHEST PA LATERAL Indication: Dyspnea and congestion. Comparison: None. Findings: No pneumothorax or pleural effusion. No confluent infiltrate. Unremarkable cardiomediastinal silhouette and lance. Impression: No acute radiographic abnormality of the chest. Electronically signed by: DESIRAE SALAZAR MD (03/24/2019 1:04 AM) [facility]
[2019-03-24 01:18] LABS: ALBUMIN 3.5 g/dL (3.4-5.0); DIRECT BILIRUBIN 0.2 mg/dL (0.0-0.2); MAGNESIUM 2.1 mg/dL (1.8-2.4); TOTAL BILIRUBIN 0.5 mg/dL (0.2-1.0); TOTAL PROTEIN 7.1 g/dL (6.4-8.2)
[2019-03-24] MEDS ORDERED: IV NORMAL SALINE 250ML 250 ML ONE (01:24)
[2019-03-24] MEDS ORDERED: IV NORMAL SALINE 50ML 50 ML ONE (01:24)
[2019-03-24] MEDS ORDERED: VANCOMYCIN 1 GM VIAL. ONE (01:24)
[2019-03-24] MEDS ORDERED: cefTRIAXone SODIUM 1 GM VIAL ONE (01:25)
[2019-03-24 01:30] LABS: INFLUENZA A PATIENT NEGATIVE (NEGATIVE); INFLUENZA B PATIENT NEGATIVE (NEGATIVE)
[2019-03-24 01:53] LABS: SEDIMENTATION RATE 8 (0-15)
[2019-03-24 02:03] LABS: BACTERIA,URINE 0 /HPF (0-FEW); BILIRUBIN,URINE NEG (NEG); CLARITY,URINE CLEAR; COLOR,URINE YELLOW; GLUCOSE,URINE NEG (NEG); NITRITE,URINE NEG (NEG); RBC,URINE 0 /HPF (0-2); SQUAMOUS EPITHELIAL CELL,UR OCC /LPF; WBC,URINE OCC /HPF (0-4)
[2019-03-24 02:04] LABS: BARBITURATES NEG (NEG); BENZODIAZEPINES NEG (NEG); CANNABINOIDS NEG (NEG); COCAINE NEG (NEG); METHADONE NEG (NEG); OPIATES NEG (NEG); PHENCYCLIDINE NEG (NEG)
[2019-03-24 02:05] LABS: AMPHETAMINE/METHAMPHETAMINE POS (NEG)
[2019-03-24] MEDS ORDERED: SULF1TAB24 PO (03:34)
[2019-03-24 03:50] VITALS: BP 122/67
[2019-03-24] MEDS ORDERED: ALBUTEROL SULFATE 8GM INHALER. INH ONE (04:00)
[2019-03-24] MEDS ORDERED: SMZ/TMP 800/160MG TABLET. PO ONE (04:00)
[2019-03-24] MEDS ORDERED: THIAMINE 200 MG/2 ML VIAL. IV ONE (04:02)
[2019-03-24] MEDS ORDERED: MVI, ADULT NO.4 WITH VIT K 10 ML VIAL IV ONE (04:03)
== END 2019-03-24 03:50 | disposition home or self-care (01) ==
LOC: ER 23:20
DX: J45.909 Unspecified asthma, uncomplicated (principal); L03.114 Cellulitis of left upper limb; L03.113 Cellulitis of right upper limb; F17.210 Nicotine dependence, cigarettes, uncomplicated; F15.10 Other stimulant abuse, uncomplicated; F12.10 Cannabis abuse, uncomplicated; F11.10 Opioid abuse, uncomplicated; Z88.0 Allergy status to penicillin; Z88.8 Allergy status to other drugs, medicaments and biological substances
CPT/HCPCS: 36415; 71046; 80048; 80076; 80307; 81001; 82550; 83605; 83690; 83735; 83880; 84443; 84484; 85025; 85379; 85610; 85651; 85730; 87040; 87804; 90471; 90715; 93005; 94640; 96365; 96366; 96368; 96372; 99285; J0696; J1650; J3370; J7050; J7120; J7512; J7613; J7620

== ENCOUNTER 2019-03-26 11:30 | Emergency (ER) | payer OTHER ==
[~2019-03-26] VITALS: Ht 190.5 cm; Wt 135.1 kg
[2019-03-26 12:51] VITALS: BP 100/67
--- NOTE | 2019-03-26 13:10 | PHYS DOC ---
Past History Past Medical History: No Pertinent History Past Surgical History: No Surgical History Smoking: Cigarettes Alcohol Use: None Drug Use: Amphetamine, Marijuana, Opiates, Other Adult General Chief Complaint Chief Complaint: NEAR SYCOPE [facility] HPI Patient is a 43-year-old male who lives at a [facility], this morning he stood up from the bed when he felt little woozy and he felt like he was going to pass out so he sat down and became normal however the staff there wanted him to be evaluated in the ER. They did not want to be responsible for his medical condition. Patient denies any chest pain, no headache, no nausea vomiting. Patient denies any weakness or dizziness anywhere at this time. Patient denies any fever or cough. All other ROS is negative unless otherwise noted in HPI Review of Systems Review of Systems See above Allergies Allergies Allergies Coded Allergies Type Severity Reaction Last Updated Verified Penicillins Allergy Intermediate 08/28/18 Yes divalproex sodium Allergy Intermediate 08/28/18 Yes lithium Allergy Intermediate 08/28/18 Yes lurasidone Allergy Intermediate 08/28/18 Yes Physical Exam Physical Exam See above Constitutional: Well developed, well nourished, no acute distress, non-toxic appearance. [] HENT: Normocephalic, atraumatic, bilateral external ears normal, oropharynx moist, no oral exudates, nose normal. [] Eyes: PERRLA, EOMI, conjunctiva normal, no discharge. [] Neck: Normal range of motion, no tenderness, supple, no stridor. [] Cardiovascular:Heart rate regular rhythm, no murmur [] Lungs & Thorax: Bilateral breath sounds clear to auscultation [] Abdomen: Bowel sounds normal, soft, no tenderness, no masses, no pulsatile masses. [] Skin: Warm, dry, no erythema, no rash. [] Back: No tenderness, no CVA tenderness. [] Extremities: No tenderness, no cyanosis, no clubbing, ROM intact, no edema. [] Neurologic: Alert and oriented X 3, normal motor function, normal sensory function, no focal deficits noted. [] Psychologic: Affect normal, judgement normal, mood normal. [] Current Patient Data Vital Signs Vital Signs Date Time Temp Pulse Resp B/P (MAP) Pulse Ox O2 Delivery O2 Flow Rate FiO2 03/26/19 12:51 75 16 99 Room Air EKG EKG EKG WAS DONE AND READ BY THIS PHYSICIAN AT 1247, RATE OF 76 BPM, NSR, NO STEMI. [] Radiology/Procedures Radiology/Procedures [] Course & Med Decision Making Course & Med Decision Making Pertinent Labs and Imaging studies reviewed. (See chart for details) Patient denies any chest pain, no headache, no dizziness AT this time. Patient denies any nausea vomiting, he felt FINE.. Patient declined any further diagnostic intervention. Patient would like to be discharged back to where he lived. Dragon Disclaimer Dragon Disclaimer This electronic medical record was generated, in whole or in part, using a voice recognition dictation system. Departure Departure: Impression: Primary Impression: Near syncope Disposition: 01 HOME, SELF-CARE Condition: STABLE Referrals: FABIOLA CLEMENTE NANOELECTRONICS ENGINEER-C (PCP) FOLLOW UP WITH YOUR DOCTOR NEEDED NEXT WEEK. Patient Instructions: Near-Syncope LEO DORSEY DO Mar 26, 2019 13:10
--- NOTE | 2019-03-26 17:36 | EKG ---
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
== END 2019-03-26 13:13 | disposition home or self-care (01) ==
LOC: ER 11:30
DX: R55 Syncope and collapse (principal); F17.210 Nicotine dependence, cigarettes, uncomplicated; Z88.0 Allergy status to penicillin; Z88.8 Allergy status to other drugs, medicaments and biological substances
CPT/HCPCS: 93005; 99283

== ENCOUNTER 2020-11-24 02:24 | Emergency (ER) | payer SELFPAY ==
[~2020-11-24] VITALS: Ht 190.5 cm; Wt 156.0 kg
--- NOTE | 2020-11-24 02:40 | PHYS DOC ---
Past History Past Medical History: No Pertinent History Past Surgical History: No Surgical History Smoking: Cigarettes Alcohol Use: None Drug Use: Amphetamine, Marijuana, Opiates, Other General Adult EDM: Chief Complaint: CHEST PAIN HPI: HPI: ".. I am at the custodial house.. [place] violation 120 days... I had just finished 8 yrs for gun charges... .. I had some chest pain tonight that woke me out of sleep... Here in the center left is a little bit better now.. " Patient is a 45 year old male who presents with above hx and chest pain. Patient rates pain 7-8 out of 10 with onset. Currently rates discomfort as 2-3 out of 10. Patient in center chest and radiated to left shoulder. Was some mild pleuritic component with movement of shoulder and deep breath. Patient denies previous cardiac issues. Patient denies any trauma. Patient denies any specific ill contacts. No recent travel. Has completed COVID vaccination. Patient denies any history of pulmonary embolism or DVTs. Patient has past medical history of obesity, elevated Lipids, GERD and tobacco abuse. Patient has recently decreased back tobacco intake. No family history of early onset of cardiac disease. Review of Systems: Review of Systems: Constitutional: Denies fever or chills Eyes: Denies change in visual acuity HENT: Denies nasal congestion or sore throat Respiratory: Denies cough or shortness of breath Cardiovascular: Complaints of chest pain GI: Denies abdominal pain, nausea, vomiting, bloody stools or diarrhea : Denies dysuria Musculoskeletal: Denies back pain or joint pain Integument: Denies rash Neurologic: Denies headache, focal weakness or sensory changes Endocrine: Denies polyuria or polydipsia Lymphatic: Denies swollen glands Psychiatric: Denies depression or anxiety Family History: Family History: Noncontributory to presentation Current Medications: Current Meds: See nursing for home meds Allergies: Allergies: Allergies Coded Allergies Type Severity Reaction Last Updated Verified Penicillins Allergy Intermediate 08/28/18 Yes divalproex sodium Allergy Intermediate 08/28/18 Yes lithium Allergy Intermediate 08/28/18 Yes lurasidone Allergy Intermediate 08/28/18 Yes Physical Exam: PE: Constitutional: Mild distress, non-toxic appearance. [] HENT: Normocephalic, atraumatic, bilateral external ears normal, oropharynx moist, no oral exudates, nose normal. [] Eyes: PERRLA, EOMI, conjunctiva normal, no discharge. [] Neck: Normal range of motion, no tenderness, supple, no stridor. [] Cardiovascular:Heart rate regular rhythm, no murmur. PMI to the left Lungs & Thorax: Bilateral breath sounds to apex with scattered wheezes auscultation [] Abdomen: Bowel sounds normal, soft, no tenderness, no masses, no pulsatile masses. Obese. Skin: Warm, dry, no erythema, no rash. [] Back: No tenderness, no CVA tenderness. [] Extremities: No tenderness, no cyanosis, no clubbing, ROM intact, no edema. No cording. Neurologic: Alert and oriented X 3, normal motor function, normal sensory function, no focal deficits noted. [] Psychologic: Affect anxious., judgement normal, mood normal. [] EKG: EKG: My interpretation EKG shows a sinus bradycardia at 59 bpm. No findings of acute STEMI of contralateral changes. Time of this EKG was 232 hours [] Radiology/Procedures: Radiology/Procedures: [][place] [address] IMAGING REPORT Signed PATIENT: CLAY DUMONT ACCOUNT: [id number] : 1975 LOCATION: ER AGE: 45 SEX: M EXAM STATUS: REG ER ORD. PHYSICIAN: URVASHI GOMEZ MD REASON: cp PROCEDURE: PORTABLE CHEST 1V EXAM: XR CHEST 1V 11/24/2020 2:58 AM CLINICAL INDICATION: Chest pain COMPARISON: None TECHNIQUE: AP upright view of the chest FINDINGS: The heart and mediastinum are normal. Lungs are well-expanded. No consolidation, pleural effusion, or pneumothorax. Pulmonary vascularity is normal. The thoracic skeleton is intact. IMPRESSION: No acute cardiopulmonary abnormality. Electronically signed by: Raven Posey MD (11/24/2020 4:35 AM) [id number] DICTATED AND SIGNED BY: RAVEN POSEY MD DATE: 11/24/20 0434 CC: URVASHI GOMEZ MD; FABIOLA CLEMENTE PROJECT BUILDER-C ~MTH0 0 Heart Score: C/O Chest Pain: Yes HEART Score for Chest Pain: HEART Score for Chest Pain Response (Comments) Value History Slighlty/Non-Suspicious 0 ECG Normal 0 Age >45 - < 65 1 Risk Factors 1 or 2 Risk Factors 1 Troponin < Normal Limit 0 Total 2 Risk Factors: Risk Factors: DM, Current or recent (<one month) smoker, HTN, HLP, family history of CAD, obesity. Risk Scores: Score 0 - 3: 2.5% MACE over next 6 weeks - Discharge Home Score 4 - 6: 20.3% MACE over next 6 weeks - Admit for Clinical Observation Score 7 - 10: 72.7% MACE over next 6 weeks - Early Invasive Strategies Course & Med Decision Making: Course & Med Decision Making Pertinent Labs and Imaging studies reviewed. (See chart for details) Patient is alert in the emergency room approximately 3 hours. Patient had resolution of symptoms shortly after arrival. Patient stating he needs to get back to the custodial house. Patient exhibits UCAR capacity. Patient refused repeat EKG and troponin levels. Patient states he'll follow up with his doctor. Will not stay 1 minute longer. Encourage patient take a daily aspirin. Follow-up primary care. Return at any time. Consider outpatient stress testing. Pt. demanding discharge. 0514Hrs. Impression : 1. Chest Pain [] Dragon Disclaimer: Dragon Disclaimer: This electronic medical record was generated, in whole or in part, using a voice recognition dictation system. Departure Departure: Referrals: FABIOLA CLEMENTE PROJECT BUILDER-C (PCP) [place] Disclaimer This chart was dictated in whole or in part using Voice Recognition software in a busy, high-work load, and often noisy Emergency Department environment. It may contain unintended and wholly unrecognized errors or omissions. Dragon Disclaimer This chart was dictated in whole or in part using Voice Recognition software in a busy, high-work load, and often noisy Emergency Department environment. It may contain unintended and wholly unrecognized errors or omissions. URVASHI GOMEZ MD Nov 24, 2020 02:39
[2020-11-24] MEDS ORDERED: ENOXAPARIN ** NOTE DOSE ** SYRINGE SQ ONE (03:00)
[2020-11-24] MEDS ORDERED: IV RINGERS SOLUTION,LACTATED 1,000 ML IV SCH (03:00)
[2020-11-24] MEDS ORDERED: ASPIRIN 325 MG TABLET PO ONE (03:00)
--- NOTE | 2020-11-24 03:14 | EKG ---
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
[2020-11-24 03:29] LABS: BASO % 0 % (0-3); EOS # 0.2 x10^3/uL (0.0-0.7); EOS % 1 % (0-3); HEMATOCRIT 41.9 % (39.0-53.0); HEMOGLOBIN 14.1 g/dL (13.0-17.5); LYMPH # 2.4 x10^3/uL (1.0-4.8); LYMPH % 21 % (24-48); MEAN CORPUSCULAR HEMOGLOBIN 33 pg (25-35); MEAN CORPUSCULAR HGB CONC 34 g/dL (31-37); MEAN CORPUSCULAR VOLUME 98 fL (79-100); MONO % 8 % (0-9); NEUT # 7.8 x10^3uL (1.8-7.7); NEUT % 69 % (31-73); PLATELET COUNT 224 x10^3/uL (140-400); RED BLOOD COUNT 4.28 x10^6/uL (4.30-5.70); RED CELL DISTRIBUTION WIDTH 14.8 % (11.5-14.5); WHITE BLOOD COUNT 11.3 x10^3/uL (4.0-11.0)
--- NOTE | 2020-11-24 04:38 | RAD ---
EXAM: XR CHEST 1V 11/24/2020 2:58 AM CLINICAL INDICATION: Chest pain COMPARISON: None TECHNIQUE: AP upright view of the chest FINDINGS: The heart and mediastinum are normal. Lungs are well-expanded. No consolidation, pleural effusion, or pneumothorax. Pulmonary vascularity is normal. The thoracic skeleton is intact. IMPRESSION: No acute cardiopulmonary abnormality. Electronically signed by: Raven Posey MD (11/24/2020 4:35 AM) [id number]
[2020-11-24 05:08] VITALS: BP 122/71
[2020-11-24 05:40] LABS: CALCIUM 8.3 mg/dL (8.5-10.1); CREATININE 0.9 mg/dL (0.7-1.3); GFR 90.4; POTASSIUM 4.5 mmol/L (3.5-5.1)
[2020-11-24 05:45] LABS: ALBUMIN 3.1 g/dL (3.4-5.0); DIRECT BILIRUBIN 0.1 mg/dL (0.0-0.2); MAGNESIUM 1.9 mg/dL (1.8-2.4); TOTAL BILIRUBIN 0.4 mg/dL (0.2-1.0); TOTAL PROTEIN 6.4 g/dL (6.4-8.2)
[2020-11-24 15:29] LABS: THYROID STIM HORMONE (TSH) 3.94 uIU/mL (0.358-3.740)
== END 2020-11-24 05:25 | disposition home or self-care (01) ==
LOC: ER 02:24
DX: R07.89 Other chest pain (principal); F17.210 Nicotine dependence, cigarettes, uncomplicated; E78.5 Hyperlipidemia, unspecified; K21.9 Gastro-esophageal reflux disease without esophagitis; Z88.0 Allergy status to penicillin; Z88.8 Allergy status to other drugs, medicaments and biological substances
CPT/HCPCS: 36415; 71045; 80048; 80061; 80076; 82550; 83690; 83735; 84443; 84484; 85025; 85379; 85610; 85730; 93005; 96360; 96372; 99285; J1650; J7120

== ENCOUNTER 2020-12-12 10:07 | Emergency (ER) | payer MEDICAID ==
[~2020-12-12] VITALS: Ht 190.5 cm; Wt 156.0 kg
[2020-12-12 10:07] VITALS: BP 124/62
--- NOTE | 2020-12-12 10:21 | PHYS DOC ---
Past History Past Medical History: No Pertinent History Past Surgical History: No Surgical History Smoking: Cigarettes Alcohol Use: Occasionally Drug Use: Amphetamine, Marijuana, Opiates, Other Adult General HPI HPI Patient is a 45-year-old male transitioning to female presenting via EMS for syncope. Onset was just prior to arrival. Patient reports having a tooth pulled recently and has been in exquisite pain. Reports he slept poorly. Woke up this morning and " did not have enough to eat " and subsequently felt hot and lightheaded. He was observed having a syncopal episode. It is unclear whether he hit his head. He immediately regained consciousness after syncope and reported focal left ankle pain as he suffered an inversion type ankle sprain on his fall to the floor. Patient is on no blood thinners, just spironolactone and estrogen to support gender transition. Denies any other known medical issues, admits tobacco use but denies alcohol or illicit drug abuse despite history of drug use. He is refusing lab draw today and just requesting imaging studies only Review of Systems Review of Systems Fourteen body systems of review of systems have been reviewed. See HPI for pertinent positives and negative responses, other [place] all other systems are negative, non-pertinent or non-contributory Allergies Allergies Allergies Coded Allergies Type Severity Reaction Last Updated Verified Penicillins Allergy Intermediate 08/28/18 Yes divalproex sodium Allergy Intermediate 08/28/18 Yes lithium Allergy Intermediate 08/28/18 Yes lurasidone Allergy Intermediate 08/28/18 Yes Physical Exam Physical Exam Constitutional: Pt is oriented to person, place, and time. Pt appears well-developed and well- nourished. Does appear under the influence of unknown drug HEENT: Head: Normocephalic and atraumatic. TMs clear, no hemotympanum Conjunctivae and EOM are normal. Pupils are equal, round, and reactive to light. Oropharynx is clear and dry with poor dentition globally with recent well- appearing teeth extraction at tooth #12 No hematomas or lacerations or abrasions to face or scalp OP clear, no blood, no malocclusion, dentition intact Nares clear, no nasal septal hematoma Midface stable Neck: C-spine midline tender at level of C4 and C5, no step-offs Cardiovascular: Normal rate, regular rhythm and normal heart sounds. Pulmonary/Chest: Effort normal and breath sounds normal. No respiratory distress. No wheezes. CTA bilaterally Abdominal: Soft and protuberant. Bowel sounds are normal. Pt exhibits no distension. There is no tenderness. Musculoskeletal: Bony tenderness present to left lateral malleolus and left navicular bone otherwise no tenderness to extremities, no palpable or visual deformities and full range of motion of all x4 extremities Chest wall stable Pelvis stable and non-tender No vertebral TTP and spine without stepoffs Neurological: Pt is alert and oriented to person, place, and time. Moving all extremities willfully, able to wiggle all fingers and toes Alert and oriented x 3 Motor and sensory function fully intact Cranial nerves II through XII intact Skin: Skin is warm and dry. No abrasions, no lacerations Psychiatric: Behavior is appropriate for situation Current Patient Data Vital Signs Vital Signs Date Time Temp Pulse Resp B/P (MAP) Pulse Ox O2 Delivery O2 Flow Rate FiO2 12/12/20 10:07 98.7 80 18 124/62 (82) 98 Room Air Vital Signs Date Time Temp Pulse Resp B/P (MAP) Pulse Ox O2 Delivery O2 Flow Rate FiO2 12/12/20 10:07 98.7 80 18 124/62 (82) 98 Room Air EKG EKG EKG ordered and interpreted by myself at home 18 hours as sinus rhythm at 65 bpm, unremarkable intervals, no axis deviation, no acute ischemic findings, no STEMI Radiology/Procedures Radiology/Procedures XR FOOT_LEFT 3 VIEWS, XR EXAM OF ANKLE_LEFT 3V Clinical indications: Reason: left lat malleolus and navicular pain / Spl. Instructions: / History: Findings: No acute fracture or dislocation or osteolytic process is evident. There is irregularity and subchondral lucency of the medial dome of talus which could be due to an osteochondral lesion. Loose bodies of the mortise ankle joint are seen. Mortise ankle joint is intact. Mild degenerative spurring of the tibiotalar joint compartment of the mortise ankle joint. No periosteal reaction of the left foot is seen. IMPRESSION: No acute osseous abnormality is evident. Medial dome of talus osteochondral lesion. Electronically signed by: Isai Riddle MD (12/12/2020 11:10 AM) [id number] ////////////////////////////////////////////////////////////// CT HEAD AND C-SPINE WO History: Fall, posterior neck pain. Comparison: None. Technique: Noncontrast CT of the head and cervical spine. Findings: CT HEAD: There is no evidence for intracranial mass or hemorrhage. There is no hydrocephalus or midline shift. No abnormal extra-axial fluid collections are present. [place]/white matter differentiation is preserved. Right maxillary sinus mucous retention cysts versus polyps. No significant mucosal thickening. The skull and scalp are within normal limits. CT CERVICAL SPINE: There is no evidence for fracture in the cervical spine. Alignment is normal. Degenerative disc space narrowing C5-C6 and C6-C7 with uncovertebral hypertrophy and moderate narrowing of the left neural foramina at C6-C7. No destructive osseous lesions are seen. Limited evaluation of the soft tissues of the neck and of the upper chest is unremarkable. Impression: 1. No acute intracranial findings. 2. No acute osseous abnormality in the cervical spine. Multilevel cervical spondylosis. Heart Score C/O Chest Pain: No HEART Score for Chest Pain: HEART Score for Chest Pain Response (Comments) Value ECG Normal 0 Age < 45 0 Total 0 Risk Factors: Risk Factors: DM, Current or recent (<one month) smoker, HTN, HLP, family history of CAD, obesity. Risk Scores: Risk Factors: DM, Current or recent (<one month) smoker, HTN, HLP, family history of CAD, obesity. Course & Med Decision Making Course & Med Decision Making ABCs unremarkable HPI, physical exam and comprehensive ER work-up nonconcerning for any emergent or surgical issues Patient refusing any type of lab draw and/or urine sample. I suspect he is under the influence of an unknown drug which is the reason for his refusal I disclosed with patient his fingerstick glucose, vitals, physical examination, EKG and imaging studies were all nonconcerning for any emergent or surgical findings but I could not definitively rule out any potentially concerning pathology without labs, he has full capacity and understands Patient continues to refuse any further lab or ER work-up and requesting discharge back home. He is ambulatory, hemodynamically stable and overall well- appearing. I advised him to follow-up with primary care. Strict return precaut ions were discussed with verbalized understanding by patient Quentin Disclaimer Dragon Disclaimer This electronic medical record was generated, in whole or in part, using a voice recognition dictation system. Departure Departure: Impression: Primary Impression: Syncope Disposition: HOME / SELF CARE / HOMELESS Condition: STABLE Referrals: PCP,NO (PCP) Patient Instructions: Syncope Additional Instructions: As discussed prior to ER departure, your vitals, physical exam and diagnostic radiographs and imaging were non concerning for any emergent or surgical issues. I did disclose need for further diagnostic testing but you deferred. As such, it is advised that you follow-up in the outpatient setting with your primary care physician for further work-up. If any concerning signs or symptoms present prior to outpatient follow-up please do not hesitate to come back for repeat evaluation. It was a pleasure to take care of you and I wish you the best going forward ERIC ARCHIBALD DO Dec 12, 2020 10:21
--- NOTE | 2020-12-12 11:03 | RAD ---
CT HEAD AND C-SPINE WO History: Fall, posterior neck pain. Comparison: None. Technique: Noncontrast CT of the head and cervical spine. Findings: CT HEAD: There is no evidence for intracranial mass or hemorrhage. There is no hydrocephalus or midline shift. No abnormal extra-axial fluid collections are present. [place]/white matter differentiation is preserved. Right maxillary sinus mucous retention cysts versus polyps. No significant mucosal thickening. The skull and scalp are within normal limits. CT CERVICAL SPINE: There is no evidence for fracture in the cervical spine. Alignment is normal. Degenerative disc space narrowing C5-C6 and C6-C7 with uncovertebral hypertrophy and moderate narrowi ng of the left neural foramina at C6-C7. No destructive osseous lesions are seen. Limited evaluation of the soft tissues of the neck and of the upper chest is unremarkable. Impression: 1. No acute intracranial findings. 2. No acute osseous abnormality in the cervical spine. Multilevel cervical spondylosis. ------- Exposure: One or more of the following individualized dose reduction techniques were utilized for thi s examination: 1. Automated exposure control 2. Adjustment of the mA and/or kV according to patient size 3. Use of iterative reconstruction technique. Electronically signed by: Stuart Florez MD (12/12/2020 11:01 AM) [id number]
--- NOTE | 2020-12-12 11:05 | EKG ---
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
--- NOTE | 2020-12-12 11:12 | RAD ---
XR FOOT_LEFT 3 VIEWS, XR EXAM OF ANKLE_LEFT 3V Clinical indications: Reason: left lat malleolus and navicular pain / Spl. Instructions: / History: Findings: No acute fracture or dislocation or osteolytic process is evident. There is irregularity a nd subchondral lucency of the medial dome of talus which could be due to an osteochondral lesion. Loo se bodies of the mortise ankle joint are seen. Mortise ankle joint is intact. Mild degenerative spurr ing of the tibiotalar joint compartment of the mortise ankle joint. No periosteal reaction of the lef t foot is seen. IMPRESSION: No acute osseous abnormality is evident. Medial dome of talus osteochondral lesion. Electronically signed by: Isai Riddle MD (12/12/2020 11:10 AM) [id number]
== END 2020-12-12 12:00 | disposition home or self-care (01) ==
LOC: ER 10:07
DX: R55 Syncope and collapse (principal); R42 Dizziness and giddiness; M25.572 Pain in left ankle and joints of left foot; F17.210 Nicotine dependence, cigarettes, uncomplicated; Z88.0 Allergy status to penicillin; Z88.8 Allergy status to other drugs, medicaments and biological substances; W18.39XA Other fall on same level, initial encounter; Y93.89 Activity, other specified; Y92.89 Other specified places as the place of occurrence of the external cause; Y99.8 Other external cause status
CPT/HCPCS: 70450; 72125; 73610; 73630; 82947; 93005; 99285-25